=== PATIENT | female | born 1960 | race Caucasian/White ===

== ENCOUNTER 2018-09-03 12:49 | Day surgery (SDC) | payer BC ==
[2018-09-03] MEDS: LACTATED RINGER'S 1,000 ML IV (06:00)
[2018-09-03] MEDS: CEFAZOLIN 2 GM/50 ML (PMX) 50 ML IVPB (06:00)
[2018-09-03 14:19] LABS: ADD MAN DIFF? NO
[2018-09-03 14:22] LABS: BASOPHILS % 0.5 % (0.0-2.0); EOSINOPHILS % 0.5 % (0.0-7.0); HEMATOCRIT 38.7 % (37.0-47.0); HEMOGLOBIN 12.4 g/dl (12.0-16.0); LYMPHOCYTES # 2.7 10^3/ul (0.8-2.9); LYMPHOCYTES % 30.2 % (15.0-51.0); MEAN CORPUSCULAR HEMOGLOBIN 28.5 pg (29.0-33.0); MEAN PLATELET VOLUME 10.5 fl (7.4-10.4); MONOCYTE # 0.5 10^3/ul (0.3-0.9); MONOCYTES % 6.1 % (0.0-11.0); NEUTROPHIL # 5.5 10^3/ul (1.6-7.5); NEUTROPHILS % 62.4 % (39.0-77.0); PLATELET COUNT 194 10^3/UL (140-415); RED BLOOD COUNT 4.35 10^6/ul (4.20-5.40); RED CELL DISTRIBUTION WIDTH 13.1 % (11.5-14.5)
[2018-09-03 14:22] LABS: WHITE BLOOD COUNT 8.8 10^3/ul (4.8-10.8)
[2018-09-03 14:39] LABS: ANION GAP 8 (5-13); BLOOD UREA NITROGEN 16 mg/dl (7-20); CARBON DIOXIDE 28 mmol/L (21-31); CHLORIDE 106 mmol/L (97-110); CREATININE 0.75 mg/dl (0.44-1.00); Estimated GFR > 60 mL/min (>60); GLUCOSE 109 mg/dl (70-220); POTASSIUM 4.5 mmol/L (3.5-5.1); SODIUM 142 mmol/L (135-144)
[2018-09-03 14:52] LABS: INR 0.88; PT RATIO 0.9
[2018-09-03] MEDS ORDERED: MIDAZOLAM 1 MG/ML 2 ML INJ (17:48)
[2018-09-03] MEDS ORDERED: BUPIVACAINE 0.5% (SDV) 30 ML INJ (18:21)
[2018-09-03] MEDS: POLYMYXIN/BACITRACIN 1L IRRIG (18:33)
[2018-09-03] MEDS ORDERED: hydrALAzine 20 MG INJ (18:38)
[2018-09-03] MEDS ORDERED: FENTAnyl 50 MCG/ML VIAL (19:14)
[2018-09-03] MEDS ORDERED: CEFAZOLIN 1 GM INJ (20:19)
[2018-09-03] MEDS ORDERED: LIDOCAINE 2% (SDV) 5 ML INJ (20:20)
[2018-09-03] MEDS ORDERED: BUPIVACAINE 0.25% (MPF) 30 ML INJ (20:20)
[2018-09-03] MEDS ORDERED: PROPOFOL 20 ML (20:20)
[2018-09-03] MEDS ORDERED: ROCURONIUM 50 MG INJ (20:20)
[2018-09-03] MEDS ORDERED: ONDANSETRON 4 MG INJ (20:25)
[2018-09-03] MEDS ORDERED: METOCLOPRAMIDE 10 MG INJ (20:25)
[2018-09-03] MEDS ORDERED: DEXAMETHASONE 4 MG/ML 5 ML INJ (20:25)
[2018-09-03] MEDS ORDERED: LABETALOL HCL 20MG INJ (21:05)
[2018-09-03] MEDS ORDERED: MEPERIDINE 25 MG INJ (21:05)
[2018-09-03] MEDS: LABETALOL HCL 20MG INJ IV (21:15)
[2018-09-03] MEDS: MEPERIDINE 25 MG INJ IV (21:15)
[2018-09-03] MEDS: ONDANSETRON 4 MG INJ IV (21:24)
[2018-09-03] MEDS: HYDROmorphONE 1 MG/5 ML IV SYRINGE IV (21:24)
[2018-09-03] MEDS ORDERED: OXYCODONE/ACETAMINOPHEN (5/325) TAB PO (21:30)
[2018-09-03] MEDS ORDERED: DIPHENHYDRAMINE 50 MG INJ IV (21:30)
[2018-09-03] MEDS ORDERED: HYDROmorphONE 1 MG/5 ML IV SYRINGE IV (21:30)
[2018-09-03] MEDS ORDERED: FENTAnyl 50 MCG/ML VIAL IV (21:30)
[2018-09-03] MEDS ORDERED: METOCLOPRAMIDE 10 MG INJ IV (21:30)
[2018-09-03] MEDS ORDERED: hydrALAzine 20 MG INJ IV (21:30)
[2018-09-03] MEDS: KETOROLAC 30 MG INJ IV (21:45)
[2018-09-03] MEDS: OXYCODONE/ACETAMINOPHEN (5/325) TAB PO (22:11)
== END 2018-09-03 22:40 | disposition home or self-care (01) ==
LOC: SDS 12:49
DX: S52.572A Other intraarticular fracture of lower end of left radius, initial encounter for closed fracture (principal); S52.501A Unspecified fracture of the lower end of right radius, initial encounter for closed fracture; X58.XXXA Exposure to other specified factors, initial encounter; S62.001K Unspecified fracture of navicular [scaphoid] bone of right wrist, subsequent encounter for fracture with nonunion; G56.03 Carpal tunnel syndrome, bilateral upper limbs
CPT/HCPCS: 25280; 71045; 73110; 80048; 84703; 85025; 85610; 85730; 93005

== ENCOUNTER 2018-11-18 19:14 | Emergency (ER) | payer BC ==
[2018-11-18] MEDS ORDERED: FAMOTIDINE 20 MG INJ IV (20:39)
[2018-11-18] MEDS ORDERED: morphine 4 MG/ML VIAL IV (20:39)
[2018-11-18] MEDS: FAMOTIDINE 20 MG TAB PO (21:03)
[2018-11-18] MEDS: SOD CHLORIDE 0.9% 1,000 ML IV ×2 (21:04→23:12)
[2018-11-18] MEDS: morphine 4 MG/ML VIAL IM (21:04)
[2018-11-18 21:06] LABS: ADD UMIC NO; UR ASCORBIC ACID NEGATIVE (NEGATIVE); UR BILIRUBIN (Dip) NEGATIVE (NEGATIVE); UR BLOOD (Dip) NEGATIVE (NEGATIVE); UR CLARITY CLEAR (CLEAR); UR COLOR STRAW (YELLOW); UR GLUCOSE (Dip) NEGATIVE (NEGATIVE); UR KETONES (Dip) NEGATIVE (NEGATIVE); UR LEUKOCYTE ESTERASE (Dip) NEGATIVE Leu/ul (NEGATIVE); UR NITRITE (Dip) NEGATIVE (NEGATIVE); UR SPECIFIC GRAVITY (Dip) 1.005 (1.003-1.030); UR TOTAL PROTEIN (Dip) NEGATIVE (NEGATIVE); UR UROBILINOGEN (Dip) NEGATIVE (NEGATIVE)
[2018-11-18 21:17] LABS: ADD MAN DIFF? NO
[2018-11-18 21:20] LABS: BASOPHILS % 0.4 % (0.0-2.0); EOSINOPHILS % 0.4 % (0.0-7.0); HEMATOCRIT 43.1 % (37.0-47.0); HEMOGLOBIN 13.6 g/dl (12.0-16.0); LYMPHOCYTES # 2.9 10^3/ul (0.8-2.9); LYMPHOCYTES % 37.9 % (15.0-51.0); MEAN CORPUSCULAR HEMOGLOBIN 26.8 pg (29.0-33.0); MEAN CORPUSCULAR HGB CONC 31.6 g/dl (32.0-37.0); MONOCYTE # 0.5 10^3/ul (0.3-0.9); MONOCYTES % 6.8 % (0.0-11.0); NEUTROPHIL # 4.2 10^3/ul (1.6-7.5); NEUTROPHILS % 54.4 % (39.0-77.0); PLATELET COUNT 258 10^3/UL (140-415); RED BLOOD COUNT 5.07 10^6/ul (4.20-5.40)
[2018-11-18 21:20] LABS: WHITE BLOOD COUNT 7.7 10^3/ul (4.8-10.8)
[2018-11-18 21:36] LABS: ALANINE AMINOTRANSFERASE 49 IU/L (13-69); ALBUMIN 4.7 g/dl (3.3-4.9); ALBUMIN/GLOBULIN RATIO 1.27; ALKALINE PHOSPHATASE 80 IU/L (42-121); ANION GAP 7 (5-13); ASPARTATE AMINO TRANSFERASE 32 IU/L (15-46); BILIRUBIN,INDIRECT 0.1 mg/dl (0-1.1); BILIRUBIN,TOTAL 0.1 mg/dl (0.2-1.3); BLOOD UREA NITROGEN 16 mg/dl (7-20); CALCIUM 10.5 mg/dl (8.4-10.2); CARBON DIOXIDE 29 mmol/L (21-31); CHLORIDE 104 mmol/L (97-110); CREATININE 0.81 mg/dl (0.44-1.00); Estimated GFR > 60 mL/min (>60); GLUCOSE 114 mg/dl (70-220); LIPASE 237 U/L (23-300); POTASSIUM 3.7 mmol/L (3.5-5.1); SODIUM 140 mmol/L (135-144); TOTAL PROTEIN 8.4 g/dl (6.1-8.1)
[2018-11-18] MEDS: SOD CHLORIDE 0.9% 100 ML (21:48)
[2018-11-18] MEDS: IOHEXOL 300MG/ML 150 ML BTL (21:48)
[2018-11-18] MEDS: HYDROmorphONE 0.5 MG/0.5 ML SYG IV (23:11)
== END 2018-11-19 00:28 | disposition home or self-care (01) ==
LOC: FTE 11-19 00:28
DX: K59.1 Functional diarrhea (principal); I10 Essential (primary) hypertension; F17.210 Nicotine dependence, cigarettes, uncomplicated
CPT/HCPCS: 36415; 74177; 80053; 81003; 83690; 85025; 87045; 87075; 87177; 96372; 96374; 99285-25